=== PATIENT | female | born 1965 | race Caucasian/White ===

== ENCOUNTER 2018-12-12 05:26 | Day surgery (SDC) | payer OTHER ==
[2018-12-10 11:27] VITALS: Ht 162.6 cm; Wt 83.0 kg
[2018-12-12] VITALS (13 sets, daily range): BP systolic 97–133; BP diastolic 54–71; PULSE 64–90; RESP 9–32
[~2018-12-12] VITALS: Ht 162.6 cm; Wt 83.0 kg
--- NOTE | 2018-12-12 06:04 | PREOPHP ---
DATE OF ADMISSION: 12/12/2018 HISTORY OF PRESENT ILLNESS: This is a 53-year-old lady, 2, para 2. Her last normal menstrua l period was 08/2018. She was admitted for D and C, hysteroscopy and suction curettage. This patien t bleeds very heavy with her periods associated with blood clots for many months and getting worse up to the time of admission. She misses her period on and off, but she bleeds heavy when she had the p eriod and that she had an ultrasound done and ultrasound showed some endometrial thickening. Endomet rial biopsy was attempted, but the cervix was stenotic, so it could not be done, so she was admitted for D and C, hysteroscopy and suction curettage. The procedures were explained to the patient and sh e understood everything totally. The risks, benefits and alternatives were discussed with her as deandra horton. PAST PERSONAL HISTORY: No history of TB or asthma. ALLERGIES: NO ALLERGIES. SOCIAL HISTORY: The patient does not smoke. She does not drink. MEDICATIONS: She does not take any drugs. GYNECOLOGIC HISTORY: She had menarche at the age of 10, every 28 days interval, 3 to 4 days duration , and moderate in amount. FAMILY HISTORY: Noncontributory. She is 2, para 2. She had 2 sections. REVIEW OF SYSTEMS: CARDIOVASCULAR: No chest pains. RESPIRATORY: No cough. GASTROINTESTINAL: No diarrhea, no vomiting. GENITOURINARY: No dysuria. PHYSICAL EXAMINATION: GENERAL: Reveals a conscious, coherent lady and in no acute distress. VITAL SIGNS: Her blood pressure 120/80, pulse rate 80 per minute, respirations 16 per minute. BREASTS, HEART AND LUNGS: Within normal limits. ABDOMEN: Soft. No organomegaly. PELVIC: Revealed the cervix to be firm, uterus of normal size, and adnexa were negative for masses. RECTAL: Confirmed the pelvic findings. EXTREMITIES: No pedal edema. ADMITTING DIAGNOSIS: Menorrhagia and endometrial thickening, rule out endometrial hyperplasia and po stmenopausal bleeding. The patient was planned to have D and C, hysteroscopy and suction curettage. The procedures were explained to the patient and she understood everything totally. The risks, bene fits and alternatives were discussed with her as well. Dictated By: VERNA BEAVER/NOE Conf#: [id number] [facility]#: [id number]
[2018-12-12] MEDS ORDERED: VASOPRESSIN 20 UNITS INJ ONE (06:52)
--- NOTE | 2018-12-12 07:23 | PREAC ---
Date/Time of Note Date/Time of Note DATE: 12/12/18 TIME: 07:21 Anesthesia Eval and Record Evaluation Time Pre-Procedure Interview DATE: 12/12/18 TIME: 07:21 Age 53 Sex female NPO: 8 hrs Preoperative diagnosis vaginal bleeding Planned procedure D&C Past Medical History Past Medical History: Includes Pulm: Sleep Apnea GI: Obesity Surgery & Anesthesia Issues No known issue Meds Anticoagulation: No Beta Casey within 24 hr: No Reason Beta Casey not given: Pt. not on B-Casey No Active Prescriptions or Reported Meds Meds reviewed: Yes Allergies Coded Allergies: No Known Allergy (Unverified , 12/12/18) Allergies Reviewed: Yes Labs/Studies Labs Reviewed: Reviewed by anesthesiologist test: N/A Pre-procedure Exam Last vitals Vital Signs Date Temp Pulse Resp B/P (MAP) Pulse Ox O2 O2 Flow FiO2 Time Delivery Rate 12/12/18 97.3 71 18 133/70 95 Room Air 06:10 (91) Airway: Adequate mouth opening, Adequate thyromental dist Mallampati: Mallampati II Teeth: Normal Lung: Normal Heart: Normal ASA Physical Status ASA physical status: 2 Emergency: None Planned Anesthetic General/MAC: ETT, LMA Pre-operative Attestations Prior to commencing anesthesia and surgery, the patient was re-evaluated, there was verification of: *The patient's identity *The results of appropriate recent lab work and preoperative vital signs *The above evaluation not changing prior to induction *Anesthetic plan, risk benefits, alternative and complications discussed with patient/family; questions answered; patient/family understands, accepts and wishes to proceed. CHENTE AGGARWAL December 12, 2018 07:23
[2018-12-12] MEDS ORDERED: SUCCINYLCHOLINE CHLORIDE 100 MG/5 ML SYG IV ONE (07:34)
[2018-12-12] MEDS ORDERED: CEFAZOLIN 1 GM INJ ONE (07:34)
[2018-12-12] MEDS ORDERED: LIDOCAINE 2% (SDV) 5 ML INJ ONE (07:34)
[2018-12-12] MEDS ORDERED: PROPOFOL 20 ML ONE (07:34)
[2018-12-12] MEDS ORDERED: ONDANSETRON 4 MG INJ ONE (07:41)
[2018-12-12] MEDS ORDERED: METOCLOPRAMIDE 10 MG INJ ONE (07:41)
[2018-12-12] MEDS ORDERED: DEXAMETHASONE 4 MG/ML 5 ML INJ ONE (07:41)
[2018-12-12] MEDS ORDERED: FENTAnyl 50 MCG/ML VIAL ONE (07:44)
--- NOTE | 2018-12-12 08:03 | SIPON ---
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
[2018-12-12] MEDS ORDERED: ACETAMINOPHEN 325 MG TAB PO PRN (08:30)
[2018-12-12] MEDS ORDERED: FENTAnyl 50 MCG/ML VIAL IV PRN ×3 (08:30)
[2018-12-12] MEDS ORDERED: OXYCODONE/ACETAMINOPHEN (5/325) TAB PO PRN ×2 (08:30)
[2018-12-12] MEDS ORDERED: ONDANSETRON 4 MG INJ IV PRN (08:30)
[2018-12-12] MEDS ORDERED: MEPERIDINE 25 MG INJ IV PRN (08:30)
[2018-12-12] MEDS ORDERED: LACTATED RINGER'S 1,000 ML IV ONE (08:30)
--- NOTE | 2018-12-12 10:34 | PAC ---
Date/Time of Note Date/Time of Note DATE: 12/12/18 TIME: 10:33 Post-Anesthesia Notes Post-Anesthesia Note Last documented vital signs Vital Signs Date Temp Pulse Resp B/P (MAP) Pulse Ox O2 O2 Flow FiO2 Time Delivery Rate 12/12/18 90 32 102/71 96 Room Air 08:51 (81) 12/12/18 98.6 08:10 Activity: WNL Respiratory function: WNL Cardiovascular function: WNL Mental status: Baseline Pain reasonably controlled: Yes Hydration appropriate: Yes Nausea/Vomiting absent: Yes BOGDAN SCHREIBER December 12, 2018 10:34
--- NOTE | 2018-12-12 20:34 | OPR ---
DATE OF OPERATION: 12/12/2018 PREOPERATIVE DIAGNOSES: Menorrhagia, postmenopausal bleeding, endometrial thickening, rule out endom etrial hyperplasia. POSTOPERATIVE DIAGNOSES: Menorrhagia, postmenopausal bleeding, endometrial thickening, rule out endo metrial hyperplasia. Pending pathology report. SURGEON: Verna Cespedes MD. ASSET SPECIALIST: Chino zhu. ANESTHESIA: General. OPERATION PERFORMED: Fractional dilatation and curettage, hysteroscopy and suction curettage. OPERATIVE TECHNIQUE: Under general anesthesia, the patient was prepped and draped in the usual fashi on for vaginal surgery. Pelvic exam under anesthesia revealed the cervix to be firm, uterus of verna l size, and adnexa were negative for masses. Then, the heavy weight vaginal retractor was put in izabel ce and the anterior lip of the cervix was grasped with an Allis clamp. Endocervical dilatation up to Hegar 6 was proceeded. Uterus was sounded to about 3 inches. The hysteroscope was inserted inside the uterine cavity and connected with a light source. The uterus was distended with normal saline. There were no polyps nor fibroids seen. The uterine lining was noted to be pale looking. Endocervic al curettage was done and a small amount of tissue was obtained. Endometrial curettage was done and a small amount of tissue was obtained. Suction tip size 6 was inserted inside the uterine cavity and connected to the suction machine. Suction curettage was done and good amount of tissue was obtained . The patient tolerated the procedure well. The uterus was intact during and after the procedure. Dictated By: VERNA BEAVER/NOE Conf#: [id number] DID#: [id number]
--- NOTE | 2018-12-13 07:27 | PAC ---
Date/Time of Note Date/Time of Note DATE: 12/13/18 TIME: 07:26 Post-Anesthesia Notes Post-Anesthesia Note Last documented vital signs Vital Signs Date Temp Pulse Resp B/P (MAP) Pulse Ox O2 O2 Flow FiO2 Time Delivery Rate 12/12/18 97.0 78 21 115/59 97 Room Air 09:00 (77) Activity: WNL Respiratory function: WNL Cardiovascular function: WNL Mental status: Baseline Pain reasonably controlled: Yes Hydration appropriate: Yes Nausea/Vomiting absent: Yes CHENTE AGGARWAL December 13, 2018 07:27
== END 2018-12-12 09:40 | disposition home or self-care (01) ==
LOC: SDS 05:26
PROVIDERS: ATTEND Obstetrics & Gynecology
DX: N92.0 Excessive and frequent menstruation with regular cycle (principal); N95.0 Postmenopausal bleeding; R93.89 Abnormal findings on diagnostic imaging of other specified body structures
CPT/HCPCS: 58558; 84702; 86850; 86900; 86901; J0690; J1100; J2405; J2765; J3010; 88305